=== PATIENT | female | born 2000 | race American Indian/Alaskan Native ===

== ENCOUNTER 2020-01-23 18:15 | Outpatient (REF) | payer MEDICAID, SELFPAY ==
[2020-01-23 21:36] LABS: TSH (W/Ref FT4) 1.31 uIU/mL (0.52-4.13)
== END 2020-01-23 18:35 ==
LOC: NCHCN 18:15
PROVIDERS: PCP Nurse Practitioner Family; Visit Provider Nurse Practitioner Family
DX: R51 Headache (principal); L70.9 Acne, unspecified; M79.669 Pain in unspecified lower leg; J30.9 Allergic rhinitis, unspecified; E66.9 Obesity, unspecified
CPT/HCPCS: 84443

== ENCOUNTER 2021-03-29 14:47 | Outpatient (REF) | payer MEDICAID, SELFPAY ==
[2021-03-30 14:57] LABS: COVID-19 RT-PCR UVMMC Result Negative (Negative)
== END 2021-03-29 14:48 | disposition home or self-care (01) ==
LOC: NCHCN 14:47
PROVIDERS: PCP Nurse Practitioner Family; Visit Provider Nurse Practitioner Family
DX: Z20.822 Contact with and (suspected) exposure to COVID-19 (principal)
CPT/HCPCS: U0003